=== PATIENT | female | born 1940 | race Caucasian/White ===

== ENCOUNTER 2021-11-22 10:48 | Outpatient (CLI) | payer MEDICARE, OTHER | END 2021-11-22 10:49 | disposition critical access hospital (66) | LOC: EMS 10:48 | PROVIDERS: ATTEND Emergency Medicine | DX: M79.89 Other specified soft tissue disorders (principal); M79.672 Pain in left foot; M79.671 Pain in right foot; M25.551 Pain in right hip; Z99.3 Dependence on wheelchair | CPT/HCPCS: A0425; A0429 ==

== ENCOUNTER 2021-11-22 11:10 | Emergency (ER) | payer MEDICARE, OTHER ==
--- NOTE | 2021-11-22 12:24 | ED Physician Documentation ---
History of Present Illness - Stated complaint Stated Complaint: SORES ON BODY - Chief complaint Chief Complaint: Wound - History obtained from History obtained from: Patient - History of Present Illness Pain level max: 0 Pain level now: 0 - Additonal information Additional information: Patient is a 81-year-old female who comes to the emergency department today because her family came to see her and noticed that she had pressure sores on her feet and on her legs from being in her wheelchair for the past several weeks to months. Reportedly her is on hospice and she has been spending her time in the wheelchair. She has a primary care provider in [facility]. She states that she does not see them very often. She states that she has not discussed with them getting any help at home such as home health or potentially going to a shelter. She would like to stay at home with her while he is on hospice. No fevers. No chills. No falls. No trauma. No neck or back pain. No head injury. No nausea or vomiting. No abdominal pain. Review of Systems Constitutional: denies: Fever Throat: denies: Sore throat Cardiac: denies: Chest pain / pressure, Palpitations Respiratory: denies: Cough GI: denies: Abdominal Pain, Vomiting, Diarrhea Musculoskeletal: denies: Neck pain, Back pain Neurologic: reports: Generalized weakness. denies: Focal weakness, Numbness, Headache PD PAST MEDICAL HISTORY - Past Medical History Past Medical History: Yes Cardiovascular: Hypertension Endocrine/Autoimmune: Type 2 diabetes, HyPOthyroidism - Present Medications Home Medications: Ambulatory Orders Medication Instructions Recorded Confirmed Diclofenac Sodium 2 gm TP Q6H PRN #1 ea 11/22/21 cephALEXin [Keflex] 500 mg PO Q6H #20 cap 11/22/21 - Allergies Allergies/Adverse Reactions: Allergies Allergy/AdvReac Type Severity Reaction Status Date / Time No Known Drug Allergies Allergy Verified 11/22/21 11:19 - Living Situation Living Situation: reports: With family Living Arrangement: reports: At home - Social History Does the pt smoke?: No Does the pt have substance abuse?: No PD ED PE NORMAL - Vitals Vital signs reviewed: Yes - General General: Alert and oriented X 3, No acute distress, Well developed/nourished - HEENT HEENT: Atraumatic, PERRL, Moist mucous membranes, Pharynx benign - Neck Neck: Supple, no meningeal sign, No bony TTP - Cardiac Cardiac: RRR, Strong equal pulses - Respiratory Respiratory: No respiratory distress, Clear bilaterally - Abdomen Abdomen: Soft, Non tender, Non distended - Back Back: No spinal TTP - Derm Derm: Warm and dry - Extremities Extremities: Other (Pressure sores to the bilateral feet, plantar aspect near the heel. Pressure sore to the right hip and right posterior thigh. No signs of infection.) - Neuro Neuro: Alert and oriented X 3 - Psych Psych: Normal mood, Normal affect Results - Vitals Vitals: Vital Signs - 24 hr 11/22/21 11/22/21 11/22/21 11:15 13:19 15:00 Temperature 36.4 C L 36.5 C 36.6 C Heart Rate 78 70 68 Respiratory 16 16 16 Rate Blood Pressure 107/58 L 96/54 L 112/52 L O2 Saturation 97 95 100 Oxygen O2 Source Room air - Labs Labs: Laboratory Tests 11/22/21 11/22/21 11/22/21 12:23 12:23 12:44 WBC 11.3 H RBC 3.46 L Hgb 10.6 L Hct 33.1 L MCV 95.7 MCH 30.6 MCHC 32.0 RDW 15.4 H Plt Count 275 MPV 11.5 H Neut # (Auto) 8.9 H Lymph # (Auto) 1.1 L [place] # (Auto) 1.1 H Eos # (Auto) 0.2 Baso # (Auto) 0.1 Absolute Nucleated RBC 0.00 Nucleated RBC % 0.0 Sodium 139 Potassium 4.6 Chloride 106 Carbon Dioxide 25 Anion Gap 8.0 BUN 53 H Creatinine 1.0 Estimated GFR (MDRD) 53 L Glucose 158 H Calcium 9.4 Total Bilirubin 0.6 AST 28 ALT 31 Alkaline Phosphatase 42 Total Protein 6.0 L Albumin 2.7 L Globulin 3.3 Albumin/Globulin Ratio 0.8 L Lipase 33 Urine Color DARK YELLOW Urine Clarity SL. CLOUDY Urine pH 6.0 Ur Specific [place] 1.025 Urine Protein 100 H Urine Glucose (UA) NEGATIVE Urine Ketones NEGATIVE Urine Occult Blood LARGE H Urine Nitrite POSITIVE H Urine Bilirubin NEGATIVE Urine Urobilinogen 0.2 (NORMAL) Ur Leukocyte Esterase MODERATE H Urine RBC 6-10 H Urine WBC >25 H Ur Squamous Epith Cells FEW Squamous Urine Bacteria Few Ur Microscopic Review INDICATED Urine Culture Comments INDICATED PD MEDICAL DECISION MAKING - ED course Complexity details: reviewed results, re-evaluated patient, considered differential, d/w patient, d/w family ED course: We will treat the patient for UTI. The pressure ulcers were cleansed and bandaged. She does appear to have a deeper pressure ulcer on the sacrum/right buttock. Patient and family state they will follow-up with wound care for this. Information for follow-up given. Patient was given Rocephin here. Will place on oral antibiotics for home. They are working with the social psychologist already for outpatient help. Social workNora, met with them here as well and offered resources. Patient is very well-appearing, nontoxic. Afebrile. No hypoxia. No respiratory distress. No evidence of sepsis. Patient and family counseled regarding signs and symptoms for which I believe and urgent re-evaluation would be necessary. Patient with good understanding of and agreement to plan and is comfortable going home at this time This document was made in part using voice recognition software. While efforts are made to proofread this document, sound alike and grammatical errors may occur. Departure - Departure Disposition: 01 Home, Self Care Clinical Impression: Pressure sore Qualifiers: Pressure injury location: unspecified location Pressure injury stage: unspecified pressure injury stage Qualified Code(s): L89.90 - Pressure ulcer of unspecified site, unspecified stage UTI (urinary tract infection) Qualifiers: Urinary tract infection type: acute cystitis Hematuria presence: without hematuria Qualified Code(s): N30.00 - Acute cystitis without hematuria Condition: Good Instructions: ED UTI Cystitis Male Follow-Up: your,doctor in 1 week [Other] [facility] [Provider Group] [facility] [Provider Group] Belkis Mcmahan ARNP [Provider Admit Priv/Credential] - Prescriptions: Diclofenac Sodium 2 gm TP Q6H PRN #1 ea PRN Reason: shoulder pain cephALEXin [Keflex] 500 mg PO Q6H #20 cap Comments: Your prescription was sent to the [facility] pharmacy. Please make sure to follow-up with wound care for further care of the pressure ulcers. Please return if she worsens. Please also follow-up as directed by social work.
[2021-11-22 12:27] LABS: BASOPHILS # (AUTO) 0.1 10^3/uL (0.0-0.1); BASOPHILS % (AUTO) 0.4 %; EOSINOPHILS # (AUTO) 0.2 10^3/uL (0.0-0.7); EOSINOPHILS % (AUTO) 1.3 %; HCT - HEMATOCRIT 33.1 % (37.0-47.0); HGB - HEMOGLOBIN 10.6 g/dL (12.0-16.0); LYMPHOCYTES # (AUTO) 1.1 10^3/uL (1.5-3.5); LYMPHOCYTES % (AUTO) 9.6 %; MEAN CORPUSCULAR HEMOGLOBIN 30.6 pg (27.0-31.0); MEAN CORPUSCULAR VOLUME 95.7 fL (81.0-99.0); MEAN PLATELET VOLUME 11.5 fL (7.9-10.8); MONOCYTES # (AUTO) 1.1 10^3/uL (0.0-1.0); MONOCYTES % (AUTO) 9.3 %; NEUTROPHILS # (AUTO) 8.9 10^3/uL (1.5-6.6); NEUTROPHILS % (AUTO) 78.9 %; PLT - PLATELET COUNT 275 10^3/uL (130-450); RED BLOOD COUNT 3.46 10^6/uL (4.20-5.40); RED CELL DISTRIBUTION WIDTH 15.4 % (12.0-15.0); WHITE BLOOD COUNT 11.3 x10^3/uL (4.8-10.8)
[2021-11-22 12:43] LABS: ALBUMIN 2.7 g/dL (3.2-5.5); ALBUMIN/GLOBULIN RATIO 0.8 (1.0-2.2); BILIRUBIN,TOTAL 0.6 mg/dL (0.2-1.0); CALCIUM 9.4 mg/dL (8.5-10.3); POTASSIUM 4.6 mmol/L (3.5-5.0)
[2021-11-22 12:51] LABS: BILIRUBIN,URINE NEGATIVE (NEGATIVE); GLUCOSE, URINE (UA) NEGATIVE (NEGATIVE); KETONES,URINE (UA) NEGATIVE (NEGATIVE); LEUKOCYTE ESTERASE, URINE MODERATE (NEGATIVE); NITRITE,URINE POSITIVE (NEGATIVE); OCCULT BLOOD,URINE LARGE (NEGATIVE); PROTEIN,URINE 100 mg/dL (NEGATIVE); UROBILINOGEN,URINE 0.2 (NORMAL) E.U./dL (NORMAL)
[2021-11-22 12:56] LABS: CLARITY,URINE SL. CLOUDY (CLEAR)
[2021-11-22 13:03] LABS: BACTERIA,URINE Few /HPF (None Seen); SQUAMOUS EPITHELIAL CELL,UR FEW Squamous (<= Few); WBC,URINE >25 /HPF (0-5)
[2021-11-22] MEDS ORDERED: cefTRIAXone 1 GM VIAL IM STA (13:09)
[2021-11-22] MEDS ORDERED: LIDOCAINE 1% 2 ML VIAL MC ONE (13:09)
--- NOTE | 2021-11-22 16:07 | XRAY Report ---
PROCEDURE: Shoulder 3 View RT INDICATIONS: R shoulder pain, no acute injury TECHNIQUE: 3 views of the shoulder were acquired. COMPARISON: None. FINDINGS: Bones: No fractures or dislocations. No suspicious bony lesions. Visualized ribs appear intact. Mo derate to severe acromioclavicular degenerative narrowing. Moderate glenohumeral narrowing. Soft tissues: No suspicious soft tissue calcifications. 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 Reviewed by: Veena Slater MD on 11/22/2021 4:06 PM PDT Approved by: Veena Slater MD on 11/22/2021 4:06 PM PDT Station ID: [id number]
[2021-11-22 17:22] VITALS: BP 96/60
== END 2021-11-22 17:22 | disposition home or self-care (01) ==
LOC: EDUNIT# → ED 11:10
DX: N30.00 Acute cystitis without hematuria (principal); L89.899 Pressure ulcer of other site, unspecified stage; L89.219 Pressure ulcer of right hip, unspecified stage; L89.159 Pressure ulcer of sacral region, unspecified stage
CPT/HCPCS: 36415; 80053; 81001; 81003; 83690; 85025; 87077; 87086; 87181; 96372; 99283; 99284

== ENCOUNTER 2021-11-22 17:23 | Outpatient (CLI) | payer MEDICARE, OTHER | END 2021-11-22 17:24 | disposition home or self-care (01) | LOC: EMS 17:23 | PROVIDERS: ATTEND Emergency Medicine | DX: R53.1 Weakness (principal); L89.90 Pressure ulcer of unspecified site, unspecified stage; Z74.01 Bed confinement status | CPT/HCPCS: A0425; A0428 ==

== ENCOUNTER 2021-12-06 08:00 | Outpatient (CLI) | payer MEDICARE, OTHER ==
[2021-12-06 21:05] LABS: BASOPHILS # (AUTO) 0.1 10^3/uL (0.0-0.1); BASOPHILS % (AUTO) 0.4 %; EOSINOPHILS # (AUTO) 0.4 10^3/uL (0.0-0.7); EOSINOPHILS % (AUTO) 2.9 %; HCT - HEMATOCRIT 31.7 % (37.0-47.0); HGB - HEMOGLOBIN 9.9 g/dL (12.0-16.0); LYMPHOCYTES # (AUTO) 2.1 10^3/uL (1.5-3.5); LYMPHOCYTES % (AUTO) 15.3 %; MEAN CORPUSCULAR HEMOGLOBIN 30.7 pg (27.0-31.0); MEAN CORPUSCULAR HGB CONC 31.2 g/dL (32.0-36.0); MEAN CORPUSCULAR VOLUME 98.1 fL (81.0-99.0); MEAN PLATELET VOLUME 11.5 fL (7.9-10.8); MONOCYTES # (AUTO) 1.5 10^3/uL (0.0-1.0); NEUTROPHILS # (AUTO) 9.5 10^3/uL (1.5-6.6); NEUTROPHILS % (AUTO) 70.1 %; PLT - PLATELET COUNT 341 10^3/uL (130-450); RED BLOOD COUNT 3.23 10^6/uL (4.20-5.40); RED CELL DISTRIBUTION WIDTH 16.6 % (12.0-15.0); WHITE BLOOD COUNT 13.5 x10^3/uL (4.8-10.8)
[2021-12-06 21:29] LABS: ALBUMIN 2.7 g/dL (3.2-5.5); ALBUMIN/GLOBULIN RATIO 0.9 (1.0-2.2); BILIRUBIN,TOTAL 0.6 mg/dL (0.2-1.0); CALCIUM 8.7 mg/dL (8.5-10.3); CREATININE 0.9 mg/dL (0.4-1.0); POTASSIUM 4.3 mmol/L (3.5-5.0); TOTAL PROTEIN 5.6 g/dL (6.7-8.2)
[2021-12-06 21:33] LABS: THYROID STIMULATING HORMONE 31.77 uIU/mL (0.34-5.60)
[2021-12-06 21:36] LABS: FREE T4 (FREE THYROXINE) 0.86 ng/dL (0.58-1.64)
[2021-12-06 22:06] LABS: ESTIMATED AVERAGE GLUCOSE 143 mg/dL (70-100); HEMOGLOBIN A1c% 6.6 % (4.27-6.07)
== END 2021-12-06 23:59 | disposition home or self-care (01) ==
LOC: LAB.N 08:00
PROVIDERS: ATTEND Physician Assistant Medical
DX: E11.9 Type 2 diabetes mellitus without complications (principal); E03.9 Hypothyroidism, unspecified; E78.5 Hyperlipidemia, unspecified; E87.5 Hyperkalemia
CPT/HCPCS: 36415; 80053; 83036; 84439; 84443; 85025

== ENCOUNTER 2021-12-08 08:00 | Outpatient (CLI) | payer MEDICARE, OTHER ==
[2021-12-08 21:49] LABS: ALBUMIN 2.5 g/dL (3.2-5.5); ALBUMIN/GLOBULIN RATIO 0.9 (1.0-2.2); BILIRUBIN,TOTAL 0.6 mg/dL (0.2-1.0); CALCIUM 8.7 mg/dL (8.5-10.3); CREATININE 0.7 mg/dL (0.4-1.0); POTASSIUM 4.1 mmol/L (3.5-5.0); THYROID STIMULATING HORMONE 34.93 uIU/mL (0.34-5.60); TOTAL PROTEIN 5.3 g/dL (6.7-8.2)
[2021-12-08 21:51] LABS: FREE T4 (FREE THYROXINE) 0.9 ng/dL (0.58-1.64)
== END 2021-12-08 23:59 | disposition home or self-care (01) ==
LOC: LAB.N 08:00
PROVIDERS: ATTEND Physician Assistant Medical
DX: E78.5 Hyperlipidemia, unspecified (principal); E03.9 Hypothyroidism, unspecified; E11.9 Type 2 diabetes mellitus without complications
CPT/HCPCS: 36415; 80053; 84439; 84443

== ENCOUNTER 2021-12-15 16:46 | Outpatient (CLI) | payer MEDICARE, OTHER | END 2021-12-15 16:47 | disposition short-term general hospital (02) | LOC: EMS 16:46 | DX: L89.309 Pressure ulcer of unspecified buttock, unspecified stage (principal); Z99.3 Dependence on wheelchair | CPT/HCPCS: A0425; A0429; A0888 ==